=== PATIENT | female | born 1990 | race Caucasian/White ===

== ENCOUNTER 2021-05-25 06:48 | Inpatient (IN) | payer MEDICAID ==
[2021-05-17 15:50] LABS: HCG SERUM QL NEGATIVE
[2021-05-17 16:02] LABS: ALBUMIN 4.2 G/DL (3.4-5.0); ALBUMIN/GLOBULIN RATIO 1.2 (1.1-1.5); ALKALINE PHOSPHATASE 75 IU/L (46-116); BLOOD UREA NITROGEN 10 MG/DL (7-18); BUN/CREATININE RATIO 13.7 (6.6-38.0); CALCIUM 9.5 MG/DL (8.5-10.1); CHLORIDE 103 MMOL/L (99-107); CREATININE 0.73 MG/DL (0.40-0.90); PRE OP ALT 28 U/L (30-65); PRE OP ANION GAP 11 (8-16); PRE OP AST 19 U/L (10-37); PRE OP BILIRUB, TOTAL 0.2 MG/DL (0.0-1.0); PRE OP GLUCOSE 88 MG/DL (70-104); PRE OP POTASSIUM 3.6 MMOL/L (3.4-5.1); PRE OP SODIUM 142 MMOL/L (135-145); TOTAL CARBON DIOXIDE 27.6 MMOL/L (24-32); TOTAL PROTEIN 7.8 G/DL (6.4-8.2); eGFR > 90 ML/MIN
[~2021-05-25] VITALS: Ht 157.5 cm; Wt 91.2 kg
[2021-05-25] VITALS (17 sets, daily range): BP systolic 88–112; BP diastolic 45–72
[~2021-05-25 06:48] MED LIST: ESCI20TA25 PO; MALTODEXTRIN/FRUCTOSE 0.68 KCAL/ML LIQUID 296ML BOTTLE PO ONE; PNV1TABL87 PO; POLY119P2 PO; ceFOXitin 2GM-NS 100mL ADDvant 100 ML IV ONE; famotidine 20mg tablet PO ONE; metroNIDAZOLE-Flagyl 500mg/NS 100ml IVPB IV ONE; ringers solution, lacted 1,000 ML IV SCH
[2021-05-25] MEDS ORDERED: BUPIVAcaine/PF 2.5 mg/ml (0.25%) 30ml vial ONE (06:49)
[2021-05-25] MEDS ORDERED: LIDOcaine 1% 30ml preserv. free vial ONE (06:49)
[2021-05-25] MEDS ORDERED: ondansetron/PF 4mg/2ml inj IV PRN ×2 (07:25→12:15)
[2021-05-25] MEDS ORDERED: MIDAZolam 1mg/ml 10ml vial IV ONE (07:25)
[2021-05-25] MEDS ORDERED: ringers solution, lacted 1,000 ML IV SCH (07:25)
[2021-05-25] MEDS ORDERED: hydrALAZINE 20mg/ml inj. IV PRN (07:25)
[2021-05-25] MEDS ORDERED: morphine 2 MG/ML inj. syringe IV PRN (07:25)
[2021-05-25] MEDS ORDERED: morphine 4 MG/ML inj SYRINge IV PRN (07:25)
[2021-05-25] MEDS ORDERED: labetalol 20mg/4ml (5mg/ml) syringe IV PRN (07:25)
[2021-05-25] MEDS ORDERED: fentaNYL/PF 50MCG/1 ML 2ML syringe IV PRN ×2 (07:25)
[2021-05-25] MEDS ORDERED: midazolam 1 mg/ML 2ml injection ONE ×2 (07:30→11:50)
[2021-05-25] MEDS ORDERED: sugammadex 200mg/2ml injection IV ONE (12:00)
--- NOTE | 2021-05-25 12:12 | NUR ---
Received from OR via ORTHO BED, accompanied by Anesthesiologist DMITRIY and report given by Anesthesiolgist. PATIENT WITH MICHAELS CATHETER IN PLACE. JASON DRAIN TO ABDOMEN ON LEFT AND 3 BANDAIDS AND ABDOMINAL BANDAGE ALL CDI. CLEAR YELLOW URINE PRESENT IN CATHETER. SCDS DONNED . 10L MASK ON WITH 100% SATURATIONS. PATIENT WITH 2 20G PIVS- ONE LEFT AND ONE RIGHT. Addendum: 05/25/21 at 1220 by Andre Velasco RN, RN Amended: Links added.
[2021-05-25] MEDS ORDERED: CADD PCA waste documentation MC PRN (12:15)
[2021-05-25] MEDS ORDERED: naloxone 0.4 mg/ml inj IV PRN (12:15)
[2021-05-25] MEDS: HYDROmorph./NS 0.2 mg/ml CADD 100 ML IV SCH ×6 (13:00→23:00)
--- NOTE | 2021-05-25 13:15 | NUR ---
Received report from ANGELITO Livingston who had received report from LIABILITY ANALYST.
--- NOTE | 2021-05-25 13:22 | NUR ---
PATIENT HAS MET ALL CRITERIA FOR TRANSFER TO THE SURGICAL FLOOR. VSS. DRESSINGS INTACT. BED LOW, CALL LIGHT PRESENT AND 2 RAILS UP. RN PRESENT TO ACCEPT CARE OF PATIENT AND REPORT HAS BEEN CALLED. ALL QUESTIONS ANSWERED TO ACCEPTING RN. GLORIA PRESENT TO ACCEPT CARE FOR PATIENT .VSS. SPOUSE SENT TO ROOM 340B. Addendum: 05/25/21 at 1324 by Andre Velasco RN RN Amended: Links added.
[2021-05-25 15:03] LABS: BASOPHILS % (AUTO) 0 % (0-1); EOSINOPHILS % (AUTO) 0 % (0-6); HEMATOCRIT 38.3 % (35.0-45.0); HEMOGLOBIN 12.7 g/dl (12.0-16.0); LYMPHOCYTES # (AUTO) 0.6 X10'3 (1.1-4.8); LYMPHOCYTES % (AUTO) 5.3 % (21-51); MEAN CORPUSCULAR HGB CONC 33.3 g/dL (33.0-36.5); MEAN CORPUSCULAR VOLUME 90.1 FL (78-98); MEAN PLATELET VOLUME 8.6 FL (7.4-10.4); MONOCYTES # (AUTO) 0.2 X10'3 (0-0.9); MONOCYTES % (AUTO) 1.6 % (2-12); NEUTROPHILS # (AUTO) 10.7 X10'3 (1.8-7.7); NEUTROPHILS % (AUTO) 93.1 % (42-75); PLATELET COUNT 269 X10'3 (140-440); RED BLOOD COUNT 4.25 X10'6 (4.20-5.60); RED CELL DISTRIBUTION WIDTH 13.2 % (11.5-14.5); WHITE BLOOD COUNT 11.5 X10'3 (4.5-11.0)
--- NOTE | 2021-05-25 18:00 | NUR ---
Problems reprioritized. Patient report given, questions answered & plan of care reviewed with ANGELITO Payne.
[2021-05-25] MEDS: docusate sod 100mg capsule PO SCH (20:38)
[2021-05-25] MEDS: sennosides/docusate sodium tablet PO SCH (20:39)
[2021-05-25] MEDS: heparin, porcine 5000 units/ml vial SQ SCH (20:39)
[2021-05-26] VITALS: BP 100/57
[2021-05-26] MEDS: HYDROmorph./NS 0.2 mg/ml CADD 100 ML IV SCH ×5 (01:00→09:00)
--- NOTE | 2021-05-26 06:20 | NUR ---
Patient in room [facility]. I have received report from ANGELITO Payne and had the opportunity to ask questions and assume patient care.
--- NOTE | 2021-05-26 06:27 | NUR ---
Problems reprioritized. Patient report given, questions answered & plan of care reviewed with Sharri RN.
[2021-05-26 06:30] VITALS: BP 92/55
[2021-05-26 06:58] LABS: BASOPHILS % (AUTO) 0.1 % (0-1); EOSINOPHILS % (AUTO) 0 % (0-6); HEMATOCRIT 34.9 % (35.0-45.0); LYMPHOCYTES # (AUTO) 1.8 X10'3 (1.1-4.8); LYMPHOCYTES % (AUTO) 17.3 % (21-51); MEAN CORPUSCULAR HEMOGLOBIN 30.6 PG (27.0-31.0); MEAN CORPUSCULAR HGB CONC 34.4 g/dL (33.0-36.5); MEAN PLATELET VOLUME 8.7 FL (7.4-10.4); MONOCYTES # (AUTO) 0.8 X10'3 (0-0.9); MONOCYTES % (AUTO) 7.4 % (2-12); NEUTROPHILS # (AUTO) 7.8 X10'3 (1.8-7.7); NEUTROPHILS % (AUTO) 75.2 % (42-75); PLATELET COUNT 258 X10'3 (140-440); RED BLOOD COUNT 3.92 X10'6 (4.20-5.60); RED CELL DISTRIBUTION WIDTH 13.1 % (11.5-14.5); WHITE BLOOD COUNT 10.4 X10'3 (4.5-11.0)
[2021-05-26 07:10] LABS: ALBUMIN 3.2 G/DL (3.4-5.0); ANION GAP 7 (8-16); BLOOD UREA NITROGEN 8 MG/DL (7-18); CALCIUM 8.5 MG/DL (8.5-10.1); CHLORIDE 108 MMOL/L (99-107); CREATININE 0.73 MG/DL (0.40-0.90); GLUCOSE 110 MG/DL (70-104); POTASSIUM 3.8 MMOL/L (3.5-5.1); SODIUM 141 MMOL/L (135-145); eGFR > 90 ML/MIN
[2021-05-26] MEDS: heparin, porcine 5000 units/ml vial SQ SCH ×2 (08:55→19:41)
[2021-05-26] MEDS: docusate sod 100mg capsule PO SCH ×2 (08:55→19:40)
[2021-05-26] MEDS: sennosides/docusate sodium tablet PO SCH ×2 (08:55→19:40)
[2021-05-26 11:00] VITALS: BP 102/56
[2021-05-26] MEDS: HYDROcodone/acetaminophen 5mg/325mg tablet PO PRN ×2 (18:02→22:06)
--- NOTE | 2021-05-26 18:25 | NUR ---
Patient in room [facility]. I have received report from Sharri EATON and had the opportunity to ask questions and assume patient care.
--- NOTE | 2021-05-26 18:30 | NUR ---
Problems reprioritized. Patient report given, questions answered & plan of care reviewed with ANGELITO Payne.
[2021-05-26 20:25] VITALS: BP 101/56
[2021-05-27] VITALS: BP 102/54
[2021-05-27 05:54] LABS: BASOPHILS % (AUTO) 0.5 % (0-1); EOSINOPHILS # (AUTO) 0.1 X10'3 (0-0.9); EOSINOPHILS % (AUTO) 0.7 % (0-6); HEMOGLOBIN 11.2 g/dl (12.0-16.0); LYMPHOCYTES # (AUTO) 3.3 X10'3 (1.1-4.8); LYMPHOCYTES % (AUTO) 44.8 % (21-51); MEAN CORPUSCULAR HEMOGLOBIN 30.5 PG (27.0-31.0); MEAN CORPUSCULAR VOLUME 89.7 FL (78-98); MEAN PLATELET VOLUME 8.8 FL (7.4-10.4); MONOCYTES # (AUTO) 0.4 X10'3 (0-0.9); MONOCYTES % (AUTO) 5.7 % (2-12); NEUTROPHILS # (AUTO) 3.5 X10'3 (1.8-7.7); NEUTROPHILS % (AUTO) 48.3 % (42-75); PLATELET COUNT 216 X10'3 (140-440); RED BLOOD COUNT 3.68 X10'6 (4.20-5.60); RED CELL DISTRIBUTION WIDTH 13.2 % (11.5-14.5); WHITE BLOOD COUNT 7.3 X10'3 (4.5-11.0)
[2021-05-27 06:09] LABS: ANION GAP 6 (8-16); BLOOD UREA NITROGEN 12 MG/DL (7-18); BUN/CREATININE RATIO 15.2 (6.6-38.0); CALCIUM 8.4 MG/DL (8.5-10.1); CHLORIDE 107 MMOL/L (99-107); CREATININE 0.79 MG/DL (0.40-0.90); GLUCOSE 88 MG/DL (70-104); POTASSIUM 3.5 MMOL/L (3.5-5.1); SODIUM 141 MMOL/L (135-145); TOTAL CARBON DIOXIDE 27.9 MMOL/L (24-32); eGFR 85 ML/MIN
--- NOTE | 2021-05-27 06:46 | NUR ---
Problems reprioritized. Patient report given, questions answered & plan of care reviewed with Melinda EATON.
[2021-05-27] MEDS ORDERED: DOCU100C40 PO (06:59)
[2021-05-27] MEDS ORDERED: SENN-283 PO (06:59)
[2021-05-27] MEDS ORDERED: HYDR-3964 PO (06:59)
[2021-05-27] MEDS ORDERED: POLY119P2 PO (06:59)
[2021-05-27 08:00] VITALS: BP 104/55
[2021-05-27] MEDS ORDERED: ESCITALOPRAM OXALATE 5 MG TABLET PO SCH (08:00)
[2021-05-27] MEDS ORDERED: PNV NO.63/IRON,CARBONYL/FA/DHA 1 EACH CAPSULE PO SCH (08:00)
[2021-05-27] MEDS: sennosides/docusate sodium tablet PO SCH (08:00)
[2021-05-27] MEDS ORDERED: polyethylene glycol 3350 17gm powd pack PO SCH (08:00)
[2021-05-27] MEDS: HYDROcodone/acetaminophen 5mg/325mg tablet PO PRN (08:01)
[2021-05-27] MEDS: docusate sod 100mg capsule PO SCH (08:01)
[2021-05-27] MEDS: heparin, porcine 5000 units/ml vial SQ SCH (08:02)
--- NOTE | 2021-05-27 10:17 | NUR ---
TO from dr livingston for d/c, f/u 2wks, med escripted to pharm
[2021-05-27 11:00] VITALS: BP 119/62
--- NOTE | 2021-05-27 12:24 | NUR ---
1210 whole, intact iv x2 catheter removed, no s/s. pt ambulated to exit with RN and was driven home by
== END 2021-05-27 12:21 | disposition home or self-care (01) | DRG 226 ==
LOC: PAS IN 06:48 → SUR 3N 13:15
PROVIDERS: ADMIT Colon & Rectal Surgery; ATTEND Colon & Rectal Surgery
PROC: 8E0W4CZ Robotic Assisted Procedure of Trunk Region, Percutaneous Endoscopic Approach (ICD-10-PCS; 2021-05-25)
PROC: 0DQP4ZZ Repair Rectum, Percutaneous Endoscopic Approach (ICD-10-PCS; principal; 2021-05-25 07:35)
DX: K62.3 Rectal prolapse (principal); E66.9 Obesity, unspecified; F41.9 Anxiety disorder, unspecified; Z68.36 Body mass index [BMI] 36.0-36.9, adult
CPT/HCPCS: 36415; 80048; 80053; 82948; 84703; 85025; 86885; 86900; 86901; 86920; 87081; A4355; A4618; A7000; C1758; G0378; J0694; J1644; J2250; J2405; J3490; J7030; J7120; U0003; U0005